=== PATIENT | female | born 1995 | race Two or more races ===

== ENCOUNTER 2020-07-27 08:00 | Outpatient (CLI) | payer OTHER | END 2020-07-27 08:30 | disposition home or self-care (01) | LOC: PPH VACUNA 08:00 | DX: Z23 Encounter for immunization (principal) ==

== ENCOUNTER 2020-10-05 12:18 | Emergency (ER) | payer OTHER ==
[~2020-10-05] VITALS: Ht 157.5 cm; Wt 118.4 kg
[2020-10-05] MEDS ORDERED: CIPRO500 MG PO (16:07)
== END 2020-10-05 16:22 | disposition home or self-care (01) ==
LOC: ER 12:18
DX: R10.2 Pelvic and perineal pain (principal)

== ENCOUNTER 2022-01-26 21:26 | Emergency (ER) | payer OTHER ==
[~2022-01-26] VITALS: Ht 157.5 cm; Wt 107.5 kg
[~2022-01-26 21:26] MED LIST: CIPRO500 MG PO
[2022-01-27] MEDS ORDERED: KETO10TA2 PO (04:05)
== END 2022-01-27 04:09 ==
LOC: ER 21:26
DX: R10.2 Pelvic and perineal pain (principal)